=== PATIENT | male | born 1970 | race Asian ===

== ENCOUNTER → 2017-07-21 | Outpatient (CLI) | payer BC | END | disposition home or self-care (01) | LOC: RADPV 10:25 | PROVIDERS: ATTEND Internal Medicine | DX: I51.7 Cardiomegaly (principal); R91.8 Other nonspecific abnormal finding of lung field; I70.0 Atherosclerosis of aorta; M47.814 Spondylosis without myelopathy or radiculopathy, thoracic region | CPT/HCPCS: 71020; 74010 ==